=== PATIENT | female | born 1965 | race Caucasian/White ===

== ENCOUNTER 2016-10-25 08:06 | Emergency (ER) | payer SELFPAY ==
[~2016-10-25] VITALS: Ht 165.1 cm; Wt 71.2 kg
[~2016-10-25 08:06] MED LIST: DIAZ5TAB PO; HYDR25CA PO; LORA-446; PROP20TA PO; SERT100T PO; TEMA15CA PO
[2016-10-25] MEDS ORDERED: ONDANSETRON ODT 4 MG PO ONE (09:00)
[2016-10-25] MEDS ORDERED: OXYcodone/APAP 5/325MG TABLET PO ONE (09:00)
[2016-10-25] MEDS ORDERED: KETOROLAC 30 MG/1 ML IM ONE (09:00)
[2016-10-25] MEDS ORDERED: OXYcodone/APAP 5/325MG TABLET ONE (09:07)
[2016-10-25] MEDS ORDERED: ONDANSETRON ODT 4 MG ONE (09:07)
[2016-10-25] MEDS ORDERED: KETOROLAC 30 MG/1 ML ONE (09:07)
[2016-10-25 09:30] LABS: HEMOGLOBIN 16.6 g/dL (11.7-16.4)
[2016-10-25 09:38] LABS: BLOOD UREA NITROGEN 12 mg/dL (7-18)
[2016-10-25 09:45] LABS: IS PT STATUS REG ER OR PRE ER? YES
[2016-10-25 10:18] VITALS: BP 169/96
== END 2016-10-25 10:21 | disposition home or self-care (01) ==
LOC: ED 10:15
DX: M79.621 Pain in right upper arm (principal); M79.631 Pain in right forearm; M79.641 Pain in right hand; M25.531 Pain in right wrist; M54.12 Radiculopathy, cervical region; F10.20 Alcohol dependence, uncomplicated; I10 Essential (primary) hypertension; Z87.440 Personal history of urinary (tract) infections
CPT/HCPCS: 36415; 71010; 72125; 80048; 82040; 84484; 85025; 93005; 96372; 99285; J1885; Q0162

== ENCOUNTER 2017-01-23 12:41 | Emergency (ER) | payer SELFPAY ==
[~2017-01-23] VITALS: Ht 165.1 cm; Wt 75.6 kg
[2017-01-23] MEDS ORDERED: KETOROLAC 30 MG/1 ML IM ONE (14:00)
[2017-01-23] MEDS ORDERED: METHOCARBAMOL 500 MG TABLET PO ONE (14:00)
[2017-01-23] MEDS ORDERED: ONDANSETRON ODT 4 MG PO ONE (14:00)
[2017-01-23] MEDS ORDERED: LORazepam 1MG TABLET PO ONE (14:00)
[2017-01-23] MEDS ORDERED: ONDANSETRON ODT 4 MG ONE (15:07)
[2017-01-23] MEDS ORDERED: KETOROLAC 30 MG/1 ML ONE (15:07)
[2017-01-23] MEDS ORDERED: LORazepam 1MG TABLET ONE (15:07)
[2017-01-23 15:37] VITALS: BP 146/100
== END 2017-01-23 16:30 | disposition home or self-care (01) ==
LOC: ED 13:58
DX: G89.11 Acute pain due to trauma (principal); M54.6 Pain in thoracic spine; F41.1 Generalized anxiety disorder; R22.2 Localized swelling, mass and lump, trunk; I10 Essential (primary) hypertension; F10.229 Alcohol dependence with intoxication, unspecified
CPT/HCPCS: 70450; 72128; 96372; 99284; J1885; Q0162

== ENCOUNTER 2017-12-27 19:32 | Emergency (ER) | payer MEDICAID ==
[~2017-12-27] VITALS: Ht 165.1 cm; Wt 61.3 kg
[2017-12-27] MEDS ORDERED: CEFTRIAXONE PMX 1GM/50ML 50 ML IVPB ONE (21:30)
[2017-12-27 21:35] LABS: BASOPHILS # (AUTO) 0.05 x10^3/uL (0-0.1); BASOPHILS % (AUTO) 1 % (0-1); EOSINOPHILS # (AUTO) 0.03 x10^3/uL (0-0.4); EOSINOPHILS % (AUTO) 0 % (1-7); LYMPHOCYTES % (AUTO) 16 % (22-44); MD NO; MEAN CORPUSCULAR HEMOGLOBIN 31.1 pg (27.0-34.8); MEAN CORPUSCULAR HGB CONC 34.2 g/dL (32.4-35.8); MEAN CORPUSCULAR VOLUME 91.1 fL (80-100); MEAN PLATELET VOLUME 8.5 fL (7.4-10.4); MONOCYTES # (AUTO) 0.72 x10^3/uL (0.2-0.8); MONOCYTES % (AUTO) 8 % (2-9); NEUTROPHILS # (AUTO) 7.05 x10^3/uL (1.8-6.8); NEUTROPHILS % (AUTO) 75 % (42-75); PLATELET COUNT 205 x10^3/uL (130-400); RED BLOOD COUNT 4.54 x10^6/uL (3.82-5.3); RED CELL DISTRIBUTION WIDTH 13.9 % (9.6-15.2)
[2017-12-27 21:48] LABS: ANION GAP 8 mmol/L (5-15); CALCIUM 8.6 mg/dL (8.5-10.1); CHLORIDE 103 mmol/L (98-107); CREATININE 0.79 mg/dL (0.55-1.02)
[2017-12-27 21:49] LABS: ALBUMIN 3.2 g/dL (3.4-5.0)
[2017-12-27] MEDS ORDERED: CEFTRIAXONE PMX 1GM/50ML 50 ML ONE (21:51)
[2017-12-27] MEDS ORDERED: POTASSIUM CHLORIDE 20 MEQ TAB.ER.PRT PO ONE (22:00)
[2017-12-27] MEDS ORDERED: POTASSIUM CHLORIDE 20 MEQ TAB.ER.PRT ONE (22:21)
[2017-12-27 22:34] VITALS: BP 106/65
== END 2017-12-27 22:37 | disposition home or self-care (01) ==
LOC: ED 21:37
DX: L03.113 Cellulitis of right upper limb (principal); E87.6 Hypokalemia; F10.20 Alcohol dependence, uncomplicated; I10 Essential (primary) hypertension; Z88.5 Allergy status to narcotic agent; Z88.6 Allergy status to analgesic agent
CPT/HCPCS: 36415; 73130; 80048; 82040; 85025; 96365; 99285; J0696

== ENCOUNTER 2017-12-31 22:54 | Emergency (ER) | payer MEDICAID ==
[~2017-12-31] VITALS: Ht 165.1 cm; Wt 64.0 kg
[2017-12-31 22:55] VITALS: BP 124/68
== END 2018-01-01 00:06 | disposition home or self-care (01) ==
LOC: ED 23:28
DX: Z48.01 Encounter for change or removal of surgical wound dressing (principal); F17.210 Nicotine dependence, cigarettes, uncomplicated
CPT/HCPCS: 99281

== ENCOUNTER 2020-10-07 10:10 | Emergency (ER) | payer MEDICARE, MEDICAID ==
[~2020-10-07] VITALS: Ht 165.1 cm; Wt 80.0 kg
--- NOTE | 2020-10-07 10:43 | NUR ---
pt bib my ems from after pt called daughter stating she was suicidal, pt at [address] and has been drinking alcohol and had 2 xanax, stating "I just want this all to end". pt states she has a plan to "drink herself to " pt state she currently has no plan to end life today. Dr. De La Torre to bedside for evaluation. pt attached to [facility] l[facility] nadn. bal .315
[2020-10-07 10:49] LABS: BASOPHILS % (AUTO) 2 % (0-1); EOSINOPHILS % (AUTO) 4 % (1-7); LYMPHOCYTES % (AUTO) 40 % (22-44); MEAN CORPUSCULAR HEMOGLOBIN 30.1 pg (27.0-34.8); MEAN CORPUSCULAR HGB CONC 33.8 g/dL (32.4-35.8); MEAN PLATELET VOLUME 7.2 fL (7.4-10.4); MONOCYTES % (AUTO) 5 % (2-9); NEUTROPHILS % (AUTO) 49 % (42-75); PLATELET COUNT 364 x10^3/uL (130-400); RED BLOOD COUNT 5.53 x10^6/uL (3.82-5.3); RED CELL DISTRIBUTION WIDTH 14.1 % (9.6-15.2)
[2020-10-07 10:51] LABS: MD NO
[2020-10-07 10:59] LABS: ALANINE AMINOTRANSFERASE 26 U/L (12-78); ALBUMIN 3.8 g/dL (3.4-5.0); ANION GAP 9 mmol/L (5-15); CALCIUM 8.3 mg/dL (8.5-10.1); CHLORIDE 110 mmol/L (98-107); CREATININE 0.72 mg/dL (0.55-1.02)
[2020-10-07 11:02] LABS: ALKALINE PHOSPHATASE 85 U/L (45-117); BILIRUBIN,TOTAL 0.4 mg/dL (0.2-1.0); TOTAL PROTEIN 7.1 g/dL (6.4-8.2)
--- NOTE | 2020-10-07 11:27 | NUR ---
pt's wallet, cell phone, cards, and money sent to security for safe keeping. pts other belonging placed to patient belonging bags in locker. vss.
--- NOTE | 2020-10-07 11:38 | NUR ---
Pt reports to EMT that she is nausea. This RN and primary RN made aware and to bedside to evaluate. Upon arrival to room, pt had finger in her mouth, when she saw this RN, she quickly moved it. Small amount of bile in emisis bag. ERPMD Santana made aware.
--- NOTE | 2020-10-07 11:39 | NUR ---
Garage doors up to monitor pt as she is tachy.
[2020-10-07] MEDS ORDERED: ONDANSETRON ODT 4 MG ONE (11:42)
[2020-10-07] MEDS ORDERED: LORazepam 1MG TABLET ONE (11:43)
[2020-10-07] MEDS ORDERED: ONDANSETRON ODT 4 MG PO ONE (12:00)
[2020-10-07] MEDS ORDERED: LORazepam 1MG TABLET PO ONE (12:00)
--- NOTE | 2020-10-07 12:27 | NUR ---
PT ASLEEP. HR 96
--- NOTE | 2020-10-07 13:03 | NUR ---
LATE ENTRY: AT APPROX 1045 PT BECAME AGIATED AND ATTEMPTED TO LEAVE. SECURITY CALLED. WITH SECURITY ASSISTANCE PT CALMED DOWN AND ESCORED BACK TO BED.
--- NOTE | 2020-10-07 13:10 | NUR ---
pt was asleep soundly, up to bathroom with steady gait for ua, pt missed urinary hat, ua to still be collected. provided si safe lunch tray. bal .272
--- NOTE | 2020-10-07 13:43 | NUR ---
pt done with lunch back asleep. ua collected.
[2020-10-07 14:03] LABS: MICROSCOPIC INDICATED
[2020-10-07 14:11] LABS: AMPHETAMINE SCREEN, URINE Negative (Negative); BARBITURATE SCREEN, URINE Negative (Negative); BENZODIAZEPINE SCREEN, URINE Positive (Negative); CANNABINOID SCREEN, URINE Positive (Negative); COCAINE SCREEN, URINE Negative (Negative); METHADONE SCREEN, URINE Negative (Negative); OPIATE SCREEN, URINE Negative (Negative)
--- NOTE | 2020-10-07 15:35 | NUR ---
pt up to bathroom with steady gait. BAL .165. vss. nadn.
--- NOTE | 2020-10-07 15:39 | NUR ---
pt stating shes starting to" feel edgy"
--- NOTE | 2020-10-07 16:00 | NUR ---
ciwa sore 11
[2020-10-07] MEDS ORDERED: ONDANSETRON 2MG/ML, 2ML ONE (16:25)
[2020-10-07] MEDS ORDERED: LORazepam 2 MG/ML, 1ML ONE (16:26)
[2020-10-07] MEDS ORDERED: ONDANSETRON 2MG/ML, 2ML IVPush ONE (16:30)
[2020-10-07] MEDS ORDERED: LORazepam 2 MG/ML, 1ML IVPush PRN (16:30)
--- NOTE | 2020-10-07 17:11 | NUR ---
PTS BAL .103, RESTING COMFORTABLY IN BED.
--- NOTE | 2020-10-07 17:55 | NUR ---
bal 0.059
--- NOTE | 2020-10-07 18:21 | NUR ---
mana oswald work evaluated pt, dr. iglesias at bedside at this time
--- NOTE | 2020-10-07 18:24 | NUR ---
SECURITY CALLED TO RETURN BELONGINGS. PTS BELONGINGS IN LOCKER RETURNED TO PATIENT.
[2020-10-07 18:29] VITALS: BP 138/89
--- NOTE | 2020-10-07 18:29 | NUR ---
security arrived with pts belongings.
--- NOTE | 2020-10-07 18:44 | NUR ---
Patient/Caregiver given discharge instructions and they have confirmed that they understand the instructions. Patient ambulatory with steady gait.
== END 2020-10-07 18:45 | disposition home or self-care (01) ==
LOC: ED 12:25
DX: R45.851 Suicidal ideations (principal); F10.120 Alcohol abuse with intoxication, uncomplicated; I10 Essential (primary) hypertension; F17.200 Nicotine dependence, unspecified, uncomplicated; Y90.0 Blood alcohol level of less than 20 mg/100 ml
CPT/HCPCS: 36415; 80053; 80143; 80307; 80320; 81001; 85025; 87086; 96374; 96375; 99284; J2060; J2405; Q0162; 80299; 80329; 99285; G0480